=== PATIENT | female | born 1955 | race Caucasian/White ===

== ENCOUNTER 2017-10-16 08:55 | Emergency (ER) | payer MEDICAID ==
[~2017-10-16] VITALS: Ht 172.7 cm; Wt 79.4 kg
[2017-10-16 08:55] VITALS: BP 142/86
[2018-03-03] MEDS ORDERED: GABA-534 PO (11:15)
[2018-03-03] MEDS ORDERED: METF-442 PO (11:15)
[2018-03-03] MEDS ORDERED: INSU100V7 SQ (11:15)
[2018-03-03] MEDS ORDERED: GLIM4TAB2 PO (11:15)
== END 2017-10-16 09:25 | disposition home or self-care (01) ==
LOC: ER 08:58
DX: L03.213 Periorbital cellulitis (principal); I10 Essential (primary) hypertension; E11.9 Type 2 diabetes mellitus without complications
CPT/HCPCS: 99283; A4606; Z7610